=== PATIENT | female | born 1990 | race Two or more races ===

== ENCOUNTER 2018-05-19 05:51 | Emergency (ER) | payer SELFPAY ==
[~2018-05-19] VITALS: Ht 154.9 cm; Wt 63.5 kg
[2018-05-19 06:05] VITALS: BP 126/78
== END 2018-05-19 06:37 | disposition home or self-care (01) ==
LOC: ER 05:55
DX: F41.9 Anxiety disorder, unspecified (principal); R06.4 Hyperventilation; Z98.86 Personal history of breast implant removal
CPT/HCPCS: 99284; A4606; Z7610